=== PATIENT | female | born 1940 | race Caucasian/White ===

== ENCOUNTER 2016-10-21 08:01 | Outpatient (CLI) | payer MEDICARE, OTHER ==
[2016-10-21 09:22] LABS: ALBUMIN/GLOBULIN RATIO 1.5 (1.0-2.2); BILIRUBIN,TOTAL 1.2 mg/dL (0.2-1.0); BUN - BLOOD UREA NITROGEN 17 mg/dL (6-20); CALCIUM 9.1 mg/dL (8.5-10.3); CARBON DIOXIDE - CO2 24 mmol/L (21-32); CHLORIDE 106 mmol/L (101-111); CHOL/HDL RATIO 3.7 (<4.4); CHOLESTEROL 201 mg/dL; CREATININE 0.7 mg/dL (0.4-1.0); GFR - MDRD 81 (>89); GLUCOSE 100 mg/dL (70-100); HDL CHOLESTEROL 54 mg/dL; LDL/HDL RATIO 2.4 (<4.4); POTASSIUM 3.9 mmol/L (3.5-5.0); SODIUM 140 mmol/L (135-145); TOTAL PROTEIN 7.9 g/dL (6.7-8.2); TRIGLYCERIDES 84 mg/dL; VLDL CHOLESTEROL 17 mg/dL
[2016-10-21 10:07] LABS: BASOPHILS # (AUTO) 0.1 10^3/uL (0.0-0.1); EOSINOPHILS # (AUTO) 0.3 10^3/uL (0.0-0.7); EOSINOPHILS % (AUTO) 4.4 %; HCT - HEMATOCRIT 35.2 % (37.0-47.0); HGB - HEMOGLOBIN 11.3 g/dL (12.0-16.0); LYMPHOCYTES # (AUTO) 2.3 10^3/uL (1.5-3.5); LYMPHOCYTES % (AUTO) 30.9 %; MEAN CORPUSCULAR HEMOGLOBIN 19.6 pg (27.0-31.0); MEAN CORPUSCULAR HGB CONC 32.1 g/dL (32.0-36.0); MEAN CORPUSCULAR VOLUME 61.3 fL (81.0-99.0); MEAN PLATELET VOLUME 11.3 fL (7.9-10.8); MONOCYTES # (AUTO) 0.5 10^3/uL (0.0-1.0); MONOCYTES % (AUTO) 6.8 %; NEUTROPHILS # (AUTO) 4.2 10^3/uL (1.5-6.6); NEUTROPHILS % (AUTO) 56.9 %; NUCLEATED RED BLOOD CELLS AUTO 0.1 /100WBC; RED BLOOD COUNT 5.75 10^6/uL (4.20-5.40); RED CELL DISTRIBUTION WIDTH 16.3 % (12.0-15.0); UNCORRECTED WHITE BLOOD COUNT 7.4 x10^3/uL; WHITE BLOOD COUNT 7.4 x10^3/uL (4.8-10.8)
--- NOTE | 2016-10-21 13:12 | Ultrasound Report ---
ULTRASOUND LEFT FOREARM: 10/21/2016 CLINICAL INDICATION: Palpable lump. TECHNIQUE: Real-time scanning was performed with loan representative static images obtained. FINDINGS: Ultrasound of the palpable abnormality identified by the patient was performed. At the si te of the palpable abnormality, there is a hypoechoic 0.9 x 0.7 x 0.3 cm nodule in the subcutaneous f at. It does not appear to represent a lipoma. Of note, it was mobile during the examination. No so nographically suspicious findings are seen. IMPRESSION: SMALL AVASCULAR HYPOECHOIC NODULE, CORRELATING WITH THE PALPABLE ABNORMALITY. JOB #: [id number] EXT JOB #:[id number]
== END 2016-10-21 08:02 | disposition home or self-care (01) ==
LOC: DI 08:01
PROVIDERS: ATTEND Family Medicine
DX: Z00.00 Encounter for general adult medical examination without abnormal findings (principal); R22.32 Localized swelling, mass and lump, left upper limb; D56.9 Thalassemia, unspecified
CPT/HCPCS: 36415; 76882; 80053; 80061; 85025

== ENCOUNTER 2017-11-18 11:08 | Outpatient (CLI) | payer MEDICARE, OTHER ==
--- NOTE | 2017-11-18 11:50 | XRAY Report ---
Procedure Date: 11/18/2017 Accession Number: [id number] / [id number] Procedure: XR - Chest 2 View X-Ray CPT Code: 55828 FULL RESULT: EXAM: Chest 2 View X-Ray DATE: 11/18/2017 11:25 AM CLINICAL HISTORY: COUGH COMPARISON: None. TECHNIQUE: 2 views. FINDINGS: Lungs/Pleura: No focal opacities evident. No pneumothorax or pleural effusion. Normal volumes. Mediastinum: Heart and mediastinal contours are unremarkable. Other: None. IMPRESSION: Normal 2-view chest radiography. [facility]
== END 2017-11-18 11:09 | disposition home or self-care (01) ==
LOC: DI 11:08
PROVIDERS: ATTEND Nurse Practitioner
DX: R05 Cough (principal)
CPT/HCPCS: 71046

== ENCOUNTER 2019-07-16 08:04 | Outpatient (CLI) | payer MEDICARE ==
[2019-07-16 08:37] LABS: CHOL/HDL RATIO 4.3 (<4.4); CHOLESTEROL 203 mg/dL; GLUCOSE,FASTING 110 mg/dL (70-100); HDL CHOLESTEROL 47 mg/dL; LDL CHOLESTEROL,CALCULATED 139 mg/dL; VLDL CHOLESTEROL 17 mg/dL
--- NOTE | 2019-07-16 22:00 | Ultrasound Report ---
Reason: EPIGASTRIC PAIN Procedure Date: 07/16/2019 Accession Number: [id number] / [id number] Procedure: US - Abdomen Complete CPT Code: Final Report FULL RESULT: EXAM: ABDOMEN ULTRASOUND EXAM DATE: 07/16/2019 08:50 AM. CLINICAL HISTORY: EPIGASTRIC PAIN. COMPARISON: None. TECHNIQUE: Real-time scanning was performed with static images obtained. FINDINGS: Liver: Submitted images of the liver demonstrate no focal lesions. Main portal vein flow: Hepatopetal. Gallbladder: There is cholelithiasis. No evidence of gallbladder wall thickening. Negative sonographic Hauser sign. Biliary System: Common bile duct measures 3 mm. No intrahepatic or extrahepatic ductal dilatation. Pancreas: Visualized portion is unremarkable. Kidneys: Right: 10.8 cm longitudinally. Normal. No contour-deforming mass, stones, or hydronephrosis. Left: 10.5 cm longitudinally. Normal. No contour-deforming mass, stones, or hydronephrosis. Spleen: 9.5 cm. Normal in size and echotexture. Aorta and Inferior Vena Cava: There is atheromatous disease of the aorta. Other: None. IMPRESSION: 1. There is cholelithiasis without evidence of cholecystitis. 2. There is no intra- or extrahepatic bile duct dilatation. [facility]
== END 2019-07-16 08:05 | disposition home or self-care (01) ==
LOC: DI 08:04
PROVIDERS: ATTEND Nurse Practitioner
DX: E78.5 Hyperlipidemia, unspecified (principal); R10.13 Epigastric pain; K80.20 Calculus of gallbladder without cholecystitis without obstruction
CPT/HCPCS: 36415; 76700; 80061; 82947; 83721

== ENCOUNTER 2022-08-06 11:36 | Outpatient (CLI) | payer MEDICARE ==
[2022-08-06 14:51] LABS: ALBUMIN 4.2 g/dL (3.2-5.5); ALBUMIN/GLOBULIN RATIO 1.3 (1.0-2.2); ALKALINE PHOSPHATASE 68 IU/L (42-121); ALT ALANINE AMINOTRANSFERASE 12 IU/L (10-60); AST ASPARTATE AMINOTRANSFERASE 18 IU/L (10-42); BILIRUBIN,TOTAL 0.9 mg/dL (0.2-1.0); BUN - BLOOD UREA NITROGEN 17 mg/dL (6-20); CALCIUM 8.9 mg/dL (8.5-10.3); CARBON DIOXIDE - CO2 25 mmol/L (21-32); CHLORIDE 107 mmol/L (101-111); CHOL/HDL RATIO 3.4 (<4.4); CHOLESTEROL 172 mg/dL; CREATININE 0.7 mg/dL (0.4-1.0); GFR - MDRD 80 (>89); GLUCOSE 104 mg/dL (70-100); HDL CHOLESTEROL 50 mg/dL; LDL CHOLESTEROL,CALCULATED 103 mg/dL; LDL/HDL RATIO 2.1 (<4.4); POTASSIUM 4.2 mmol/L (3.5-5.0); SODIUM 137 mmol/L (135-145); TOTAL PROTEIN 7.4 g/dL (6.7-8.2); TRIGLYCERIDES 94 mg/dL; VLDL CHOLESTEROL 19 mg/dL
[2022-08-06 14:53] LABS: THYROID STIMULATING HORMONE 1.94 uIU/mL (0.34-5.60)
[2022-08-06 15:13] LABS: BASOPHILS % (AUTO) 0.8 %; EOSINOPHILS % (AUTO) 4.9 %; HCT - HEMATOCRIT 33.7 % (37.0-47.0); HGB - HEMOGLOBIN 10.3 g/dL (12.0-16.0); LYMPHOCYTES % (AUTO) 34.8 %; MEAN CORPUSCULAR HEMOGLOBIN 19.4 pg (27.0-31.0); MEAN CORPUSCULAR HGB CONC 30.6 g/dL (32.0-36.0); MEAN CORPUSCULAR VOLUME 63.3 fL (81.0-99.0); MONOCYTES % (AUTO) 6.7 %; NEUTROPHILS % (AUTO) 52.6 %; PLT - PLATELET COUNT 243 10^3/uL (130-450); RED BLOOD COUNT 5.32 10^6/uL (4.20-5.40); RED CELL DISTRIBUTION WIDTH 17.3 % (12.0-15.0); WHITE BLOOD COUNT 9.6 x10^3/uL (4.8-10.8)
[2022-08-06 15:17] LABS: ABNORMAL LYMPHS % (MANUAL) 0 %; BAND NEUTROPHILS % (MANUAL) 0 %
[2022-08-06 15:40] LABS: BASOPHILS # (MANUAL) 0.2 10^3/uL (0-0.1); BASOPHILS % (MANUAL) 2 %; EOSINOPHILS # (MANUAL) 0.5 10^3/uL (0-0.7); LYMPHOCYTES # (MANUAL) 3.6 10^3/uL (1.5-3.5); LYMPHOCYTES % (MANUAL) 21 %; MONOCYTES # (MANUAL) 0.5 10^3/uL (0.0-1.0); NEUTROPHILS # (MANUAL) 4.9 10^3/uL (1.5-6.6); PLATELET ESTIMATE, MANUAL NORMAL (130-450,000) (NORMAL); PLATELET MORPHOLOGY 1+ GIANT PLATELETS (NORMAL); REACTIVE LYMPHS % (MANUAL) 16 %
[2022-08-06 15:41] LABS: DIFFERENTIAL COMMENT MANUAL DIFFERENTIAL
== END 2022-08-06 11:37 | disposition home or self-care (01) ==
LOC: LAB.S 11:36
PROVIDERS: ATTEND Family Medicine
DX: R00.0 Tachycardia, unspecified (principal); R03.0 Elevated blood-pressure reading, without diagnosis of hypertension; Z13.220 Encounter for screening for lipoid disorders
CPT/HCPCS: 36415; 80053; 80061; 83721; 84443; 85025